=== PATIENT | female | born 1975 | race Caucasian/White ===

== ENCOUNTER 2016-04-26 11:05 | Emergency (ER) | payer BC ==
[~2016-04-26] VITALS: Ht 160 cm; Wt 54.7 kg
[2016-04-26 11:17] VITALS: TEMP 36.5; Ht 160 cm; Wt 54.7 kg
[2016-04-26] MEDS ORDERED: BCPILLS PO (11:31)
--- NOTE | 2016-04-26 12:18 | DIAGNOSTIC IMAGING REPORT ---
CT HEAD WITHOUT CONTRAST (CT) CLINICAL HISTORY: Left-sided headache COMPARISON STUDY: No previous studies for comparison. TECHNIQUE: Axial CT of the brain is performed from the vertex to the skull base. IV contrast was not administered for this examination. CT DOSE: 537.48 mGy.cm FINDINGS: No intra or extra-axial mass lesions are visualized. There is no CT evidence of acute cortical infarction. There is no evidence of midline shift. There is no acute hemorrhage. No calvarial fractures are visualized. There is no evidence of pathologic ventricular dilatation. There is a cavum septa pellucida and cavum vergae. There is no evidence of acute sinusitis IMPRESSION: No acute intracranial findings Electronically signed by: Sherif Quintero M.D. 04/26/2016 12:16 PM Dictated Date/Time: 04/26/2016 12:15 PM
[2016-04-26 12:47] VITALS: BP 118/80; PULSE 70; O2SAT 99
--- NOTE | 2016-04-26 13:07 | EMERGENCY ROOM VISIT NOTE ---
History First contact with patient: 11:45 Chief Complaint: HEAD PAIN Stated Complaint: PERSISTENT BALLARD, NOT SCALP BUT BRAIN HURTS History of Present Illness The patient is a 41 year old female who presents to the Emergency Room with complaints of "left-sided brain pain". The patient reports that she has had the discomfort for the past few weeks. She denies any recent trauma or injury. She does report a history of recurrent sinusitis with her last sinusitis in February. She denies any pain extending into her neck or frontal head. She also denies any blurred vision, light sensitivity, nausea, fevers or chills. The patient reports that the symptoms were initially intermittent, but are now becoming more constant. When asked if she has ever had a prior history of headaches, she again reports that this is not a headache, but "brain pain". She rates her discomfort a 4 out of 10. She has not followed up with her family doctor or ENT for the symptoms. Review of Systems 10 system review was performed and was negative except for pertinent positives and negatives as indicated in history of present illness Past Medical/Surgical History Medical Problems: (1) Recurrent sinusitis Surgical Problems: (1) History of tonsillectomy and adenoidectomy Family History FH: cancer FH: diabetes mellitus FH: heart disease FH: hypertension Social History Smoking Status: Never Smoker Alcohol Use: occasionally Housing Status: lives alone Occupation Status: employed Current/Historical Medications Scheduled Control Pills ( Control Pills), 1 TAB PO DAILY Allergies Coded Allergies: Codeine (Unverified Adverse Reaction, Intermediate, CAN'T SLEEP, 04/26/16) Physical Exam Vital Signs Date Time Temp Pulse Resp B/P Pulse Ox O2 Delivery O2 Flow Rate FiO2 04/26/16 12:47 70 17 118/80 99 04/26/16 11:17 36.5 77 16 111/78 98 Room Air Pain Rating (0-10): 4.0 Physical Exam CONSTITUTIONAL: Healthy and well nourished. Alert and oriented X 3 with positive affect. GCS 15. HEENT: Normocephalic, atraumatic. Pupils equal, round and reactive. No obvious scalp edema, ecchymosis or erythema noted. No subconjunctival hemorrhage. Ears and nares are clear. NECK: Full active range of motion without discomfort. RESPIRATORY: Clear to auscultation bilaterally with no wheezing, crackles, rhonchi or stridor. CARDIOVASCULAR: Regular rate and rhythm with no murmurs, rubs or gallops. MUSCULOSKELETAL: Full range of motion of all joints without discomfort. INTEGUMENTARY: No rash or other significant dermatologic conditions noted. NEUROLOGIC: Normal finger to nose test. Negative pronator drift. No ataxia with ambulation. No focal neurologic deficits noted. Medical Decision & Procedures ER Provider Diagnostic Interpretation: Noncontrast CT of the head does not show any intracranial bleed, midline shift or mass effect. Radiologist report is as follows: CT HEAD WITHOUT CONTRAST (CT) CLINICAL HISTORY: Left-sided headache COMPARISON STUDY: No previous studies for comparison. TECHNIQUE: Axial CT of the brain is performed from the vertex to the skull base. IV contrast was not administered for this examination. CT DOSE: 537.48 mGy.cm FINDINGS: No intra or extra-axial mass lesions are visualized. There is no CT evidence of acute cortical infarction. There is no evidence of midline shift. There is no acute hemorrhage. No calvarial fractures are visualized. There is no evidence of pathologic ventricular dilatation. There is a cavum septa pellucida and cavum vergae. There is no evidence of acute sinusitis IMPRESSION: No acute intracranial findings ED Course Patient history and physical exam were performed. Nurse's notes were reviewed. Vital signs were reviewed and were normal. Noncontrast CT of the head was performed and was normal. The patient was advised of her normal CT scan, and encouraged to continue follow-up with her PCP. She was encouraged to alternate ibuprofen and Tylenol as needed for pain. Return to the emergency department for any significantly worsening pain, fever or other concerning neurologic symptoms. The patient was happy with plan of care, voiced understanding of all discharge instructions, refused any analgesics while in the emergency department , and rated her discomfort a 4 out of 10 at the time of discharge. Medical Decision Impression Primary Impression: Left-sided headache Departure Information Dispostion Home / Self-Care Forms HOME CARE DOCUMENTATION FORM, IMPORTANT VISIT INFORMATION Patient Instructions [facility] [employer] Additional Instructions Ibuprofen or Tylenol as needed for discomfort. Follow-up with your family doctor as needed for any persistent symptoms. Return to the Emergency Department for significantly worsening pain, fever or other concerning symptoms.
== END 2016-04-26 12:49 | disposition home or self-care (01) ==
LOC: C.EDB 11:07 → C.EDD 12:49
DX: R51 Headache (principal); Z86.19 Personal history of other infectious and parasitic diseases; Z88.5 Allergy status to narcotic agent; Z80.9 Family history of malignant neoplasm, unspecified; Z83.3 Family history of diabetes mellitus; Z82.49 Family history of ischemic heart disease and other diseases of the circulatory system